=== PATIENT | female | born 2000 | race Caucasian/White ===

== ENCOUNTER 2021-07-23 21:26 | Emergency (ER) | payer OTHER ==
[2021-07-23 21:40] VITALS: BP 106/69; PULSE 93; TEMP 97.8; BMI 24.4
[2021-07-23] MEDS ORDERED: ACETAMINOPHEN 325 MG TABLET (FP) PO ONE (21:44)
[2021-07-23] MEDS ORDERED: KETOROLAC TROMETHAMINE 30 MG/1 ML VIAL IM ONE (22:21)
[2021-07-23] MEDS ORDERED: KETOROLAC TROMETHAMINE 30 MG/1 ML VIAL ONE (22:28)
== END 2021-07-23 23:20 | disposition home or self-care (01) ==
LOC: JER 21:26
PROC: 3E0233Z Introduction of Anti-inflammatory into Muscle, Percutaneous Approach (ICD-10-PCS; principal; 2021-07-23)
DX: R07.82 Intercostal pain (principal)
CPT/HCPCS: 71046-TC-FY; 71101-TC-RT-FY; 76604; 76705-TC; 93308; 99285-25

== ENCOUNTER 2022-05-20 16:48 | Emergency (ER) | payer OTHER ==
[2022-05-20 17:06] VITALS: BP 95/68; PULSE 77; RESP 19; TEMP 97.9; BMI 24.2
== END 2022-05-20 19:25 | disposition home or self-care (01) ==
LOC: JER 16:48
DX: R07.9 Chest pain, unspecified (principal)
CPT/HCPCS: 71046-TC-FY; 93005; 93010; 99284-25